=== PATIENT | male | born 1950 | race Caucasian/White ===

== ENCOUNTER 2018-02-20 05:54 | Inpatient (IN) ==
[2018-02-20] MEDS ORDERED: CeFAZolin Syr 2,000MG/20 ML 2,000 MG/20 ML SYRINGE IVPB ONE (06:37)
[2018-02-20] MEDS ORDERED: Famotidine 20 MG/2 ML VIAL IVP ONE (06:41)
[2018-02-20] MEDS ORDERED: Pregabalin 75 MG CAPSULE PO ONE (06:42)
[2018-02-20] MEDS ORDERED: Acetaminophen IV 1,000 MG/100 ML INFUS..BTL IVPB ONE (06:42)
[2018-02-20] MEDS ORDERED: Ringers Solution, Lactated 1,000 ML IVC SCH ×2 (06:45→11:43)
--- NOTE | 2018-02-20 06:54 | History & Physical Report ---
Date of Encounter: 02/20/18 Time of Encounter: 06:54 24 Hour HP Update - Instructions Instructions: If the History and Physical is less than 30 days old and was completed prior to A.M. admission and or procedure and has NOT been updated on calendar day of procedure please complete this update prior to performing procedure. - Update Patient reports changes in Medical Condition: No Changes in examination, assessment, or condition: No Changes in Medication: No Preop tests/diagnostics Reviewed: Yes Surgery Remains Indicated: Yes Consent for Planned Operative Procedure(s) Verified: Yes - Pre-Operative Checklist Preoperative Checklist Indicated: No Prophylactic Antibiotic Ordered: Yes Is VTE Prophylaxis Indicated?: Yes
[2018-02-20] MEDS ORDERED: ROPIVACAINE HCL/PF 0.5% 30 ML VIAL ONE (07:30)
[2018-02-20] MEDS ORDERED: Bupivacaine/Clonidine Syringe 1 EACH SYRINGE ONE (07:31)
[2018-02-20] MEDS ORDERED: *HR* Midazolam HCl 2 MG/2 ML VIAL ONE (07:52)
[2018-02-20] MEDS ORDERED: *HR* FentaNYL (PF) 100 MCG/2 ML VIAL ONE (07:52)
[2018-02-20] MEDS ORDERED: *HR* Propofol 200 MG/20 ML VIAL IVP ONE (07:52)
--- NOTE | 2018-02-20 07:52 | Anesthesia Evaluation PreOp ---
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 History: Other (Dementia) Other Medical History: Denies Any Significant HX, Thyroid, GERD Anesthesia History: No Prior Anesthetic Complications Alcohol Use: none Drug use: none Medications and Allergies ALPRAZolam [Xanax 1 MG Tablet] 1 mg PO TID PRN 02/20/18 [History] Bupropion HCl [Wellbutrin Xl] 300 mg PO DAILY 02/20/18 [History] Cholecalciferol (D-3) [Vitamin D] 1,000 unit PO DAILY 02/20/18 [History] Citalopram Hydrobromide [Celexa] 40 mg PO DAILY 02/20/18 [History] Dicyclomine [Bentyl] 20 mg PO QID PRN 02/20/18 [History] DiphenhydraMINE [Benadryl] 25 mg PO Q6HR 02/20/18 [History] HYDROcodone/Acet 7.5/325 mg [[place] 7.5-325 mg] 1 tab PO Q4H PRN 02/20/18 [ History] Ibuprofen [Motrin] 600 mg PO BID PRN 02/20/18 [History] Levothyroxine Sodium [Levo-T] 100 mcg PO DAILY 02/20/18 [History] Lisinopril [Zestril] 10 mg PO DAILY 02/20/18 [History] Trazodone HCl 100 mg PO DAILY 02/20/18 [History] raNITIdine HCl [Ranitidine HCl] 300 mg PO DAILY PRN 02/20/18 [History] 3 Allergy/AdvReac Type Severity Reaction Status Date / Time No Known Allergies Allergy Verified 02/20/18 07:09 - Meds/Allergy Pre-op Review Medications Reviewed: Yes Allergies Reviewed: Yes Beta Blockers on Current Med List: No Anesthesia Results - Labs Laboratory Tests 02/18/18 02/18/18 11:45 11:45 Hgb 15.2 Hct 44.9 Plt Count 191 Sodium 132 L Potassium 4.0 BUN 11 Creatinine 1.52 H - Imaging EKG: report reviewed (SR) Anesthesia Exam O2 Sat Height 1.68 m Height 1.68 m Height 1.68 m Weight 83.461 kg Weight 83.461 kg Weight 83.461 kg O2 Sat by Pulse Oximetry 95 Vital Signs Temp Pulse Resp BP Pulse Ox 98.3 F 82 18 133/80 95 02/20/18 06:18 02/20/18 06:18 02/20/18 06:18 02/20/18 06:18 02/20/18 06:18 Height: 5'6 Weight: 184 NPO (# of Hours): MN Pain Scale: 0 - HEENT Pupil (Motor): Pupils equal, EOMI Mallampati: III Teeth: Normal Oral Opening: Greater than 3 - CUSTOM GARMENT DESIGNER LOC: Oriented CUSTOM GARMENT DESIGNER Motor: Normal RUE, Normal LUE, Normal RLE, Normal LLE, Normal Face CUSTOM GARMENT DESIGNER Sensory: Normal: RUE, LUE, RLE, LLE, Face - Cardiac Rhythm: Regular Murmur: None JVD: No Carotid Bruit: No - Pulmonary Breath Sounds: bilateral Clear Respiratory Effort: Symmetrical Anesthesia Assess/Plan ASA Score: 3 (HTN DEmentia) Modified Mcrae [place] Scale for Level of Consciousness: Drowsy, but responsive to commands Monitoring Plan: Standard Monitors Recovery Plan: PACU (Discussed GA and RA, agrees to proceed)
--- NOTE | 2018-02-20 08:11 | Anesthesia Procedures ---
Date of Encounter: 02/20/18 Time of Encounter: 07:50 Procedures: Anesthesia - Nerve Block Procedure Date: 02/20/18 Time: 08:10 Pre-op Diagnosis: Arthropathy Rt Shoulder Surgical Procedure: Rt TSR Checklist: Correct Patient Identifier Correct side: Right Blood Thinner: No Monitor Applied: EKG, BP, Pulse Oximetry Sedation: Fentanyl (mcg): 100 Indication: Post Op Analgesia Pre-op Neuro Deficits: No Block Type: Supraclavicular Catheter placed: No Depth at skin (cm): 3 Sterile Technique: Yes Ultrasound used: Yes Anatomy identified: Yes Visual spread of Local: Yes Neuro Stimulation: No Blood on Needle Aspiration: No Smooth Injection of Local: Yes Pain with Injection of Local: No Prep: Chlorhexadine Needle: 22 x 50 mm Stimuplex Local: Ropivacaine, Other (Dexamethasone) Volume (cc): 30 Number of Attempts: 1 Complications: None/effective block Vitals: Vital Signs/O2 Sat/Glucose, Most Current Temp Pulse Resp BP Pulse Ox 02/20/18 06:18 98.3 F 82 18 133/80 95
--- NOTE | 2018-02-20 08:14 | Discharge Summary ---
<Mariusz Mcgill - Last Filed: 02/20/18 08:56> Orders not resulted at time of discharge: Pending orders 02/20/18 06:42 US anesthesia pain block [US] Routine 02/20/18 08:07 XR shoulder complete RT [XR] Routine H/H [Hemoglobin and Hematocrit] [HEME] Routine Date of Encounter: 02/20/18 - Discharge Diagnosis (1) Rotator cuff arthropathy of right shoulder Priority: Primary Status: Chronic (2) Status post reverse arthroplasty of right shoulder Priority: Primary Status: Acute (3) Alcoholic dementia Priority: Secondary Status: Chronic Qualifiers: Dementia behavioral disturbance: without behavioral disturbance Qualified Code(s): F10.27 - Alcohol dependence with alcohol-induced persisting dementia (4) Chronic pain Priority: Secondary Status: Chronic Qualifiers: Chronic pain type: chronic pain syndrome Qualified Code(s): G89.4 - Chronic pain syndrome (5) Decreased GFR Priority: Secondary Status: Chronic (6) HTN (hypertension) Priority: Secondary Status: Chronic Qualifiers: Hypertension type: essential hypertension Qualified Code(s): I10 - Essential (primary) hypertension (7) Hx of falling Priority: Secondary Status: Chronic - Hospital Course Hospital course: Mr. Kang is a 67 year old male - Time Spent with Patient Total time spent providing and/or coordinating discharge services: - Discharge Medications Home Medications: ALPRAZolam [Xanax 1 MG Tablet] 1 mg PO TID PRN 02/20/18 [History] Bupropion HCl [Wellbutrin Xl] 300 mg PO DAILY 02/20/18 [History] Cholecalciferol (D-3) [Vitamin D] 1,000 unit PO DAILY 02/20/18 [History] Citalopram Hydrobromide [Celexa] 40 mg PO DAILY 02/20/18 [History] Dicyclomine [Bentyl] 20 mg PO QID PRN 02/20/18 [History] DiphenhydraMINE [Benadryl] 25 mg PO Q6HR 02/20/18 [History] HYDROcodone/Acet 7.5/325 mg [[place] 7.5-325 mg] 1 tab PO Q4H PRN 02/20/18 [ History] Ibuprofen [Motrin] 600 mg PO BID PRN 02/20/18 [History] Levothyroxine Sodium [Levo-T] 100 mcg PO DAILY 02/20/18 [History] Lisinopril [Zestril] 10 mg PO DAILY 02/20/18 [History] Trazodone HCl 100 mg PO DAILY 02/20/18 [History] raNITIdine HCl [Ranitidine HCl] 300 mg PO DAILY PRN 02/20/18 [History] Allergies/Adverse Reactions: 3 Allergy/AdvReac Type Severity Reaction Status Date / Time No Known Allergies Allergy Verified 02/20/18 07:09 Primary care physician: Julien Mallory Jr, MD - Patient Status Disposition: Home, Self-Care Condition: Good - Discharge Instructions Follow Up With: Julien Mallory Jr, MD [Primary Care Provider] - <Agnieszka Staton - Last Filed: 02/20/18 15:51> Orders not resulted at time of discharge: Pending orders 02/20/18 06:42 US anesthesia pain block [US] Routine Date of Encounter: 02/20/18 Time of Encounter: 15:45 - Discharge Diagnosis (1) Rotator cuff arthropathy of right shoulder Priority: Primary Status: Chronic (2) Status post reverse arthroplasty of right shoulder Priority: Primary Status: Acute (3) Chronic pain Priority: Secondary Status: Chronic Comments: Continue chronic pain medication, reviewed with patient. Patient in agreement. Qualifiers: Chronic pain type: chronic pain syndrome Qualified Code(s): G89.4 - Chronic pain syndrome (4) Alcoholic dementia Priority: Secondary Status: Chronic Qualifiers: Dementia behavioral disturbance: without behavioral disturbance Qualified Code(s): F10.27 - Alcohol dependence with alcohol-induced persisting dementia (5) HTN (hypertension) Priority: Secondary Status: Chronic Qualifiers: Hypertension type: essential hypertension Qualified Code(s): I10 - Essential (primary) hypertension (6) Hx of falling Priority: Secondary Status: Chronic (7) Decreased GFR Priority: Secondary Status: Chronic Comments: BMP repeated today - mild improvement with kidney function. Continue to encourage hydration. - Hospital Course Hospital course: Mr. Kang is a 67 year old male, s/p Right TSR-reverse today with a history of Chronic pain, [id number] dementia, htN, and decreased GFR. He is an increased fall risk. Patient had uneventful postoperative course. Stable for discharge. Patient seen at bedside, without complaints. A&O x 3 Afebrile, vital signs stable. Labs reviewed. H/H - stable, asymptomatic Repeat BMP - improvement from baseline GFR: 46 and cre 1.52. Pain control: adequate Participating in PT. All questions and concerns addressed. Educated on use of incentive spirometer. Encouraged ambulation and proper hydration. Patient educated on post-operative restrictions and post-operative care. Assessment and plan: Continue with postoperative care Discharge plan: Home today with outpatient, family in agreement. discharge today. Dc shoulder pillow today Educated on shoulder ROM exercises. - Time Spent with Patient Total time spent providing and/or coordinating discharge services: Date of admission: 02/20 Primary care physician: Julien Mallory Jr, MD Anticipated date of discharge: 02/20/18 - Patient Status Functional capacity at discharge: independent ambulation Overall status at discharge: patient is back to baseline
[2018-02-20] MEDS ORDERED: Ondansetron 4 MG/2 ML VIAL ONE (08:32)
[2018-02-20] MEDS ORDERED: Dexamethasone 4 MG/ML VIAL ONE (08:32)
[2018-02-20] MEDS ORDERED: Ketorolac 30 MG/ML VIAL ONE (08:33)
[2018-02-20] MEDS ORDERED: *HR* Labetalol 20 MG/4 ML SYRINGE IVP PRN (08:49)
[2018-02-20] MEDS ORDERED: Ondansetron 4 MG/2 ML VIAL IVP PRN ×2 (08:49→11:43)
--- NOTE | 2018-02-20 08:56 | Orthopedic Operative Note ---
Date of procedure: 02/20/18 Pre-op diagnosis: Right shoulder cuff tear arthropathy Post-op diagnosis: same Procedure: Procedure: Total Shoulder Replacment Reverse, right Estimated blood loss: 50 cc Hardware: Metal and polyethylene replacement: Arthrex large glenoid baseplate, 2 4.5 screws. 1 6.5 screw, 42+4 glenosphere, 9 humeral stem, poly insert 3 Exam Under anesthesia: Full motion no instability Procedural Notes: Irreparable tear supraspinatus tendon Operative procedure: The patient was brought to the operating room and placed on the operating room table. After general anesthesia was administered the operative shoulder was examined. Findings were noted. The patient was placed in the modified beachchair position. All pressure points were padded appropriately. And the head was stabilized in the neutral position. The operative extremity was prepped and draped in the sterile surgical fashion. The patient received IV antibiotics prior to skin incision. A standard deltopectoral approach was made to the operative shoulder. Incision was made to the skin and subcutaneous tissue,hemo stasis was obtained with Bovie cautery. Using careful blunt dissection the cephalic vein was identified and mobilized medially. The deltopectoral interval was developed and the clavipectoral fascia was incised. The subscap was released off the lesser tuberosity and tagged with #2 FiberWire suture subscap was irreparable. The humerus was dislocated patient noted to have irreparable tear supraspinatus tendon, and the humeral cut was made along the anatomic neck. Anterior and posterior Bankart retractors were placed to expose the glenoid. The glenoid guide was seated and the centering hole was made. It was reamed with the appropriate reamer. The large baseplate was seated and secured with (2) 4.5 screws and one 6.5 screw. The baseplate was irrigated and dried and the 42+4 Glenosphere was seated and secured with the Thompson taper. The Thompson taper was tested and found to be secure the humerus was redislocated and prepared with the diaphyseal reamers, followed by a broaching process up to the appropriate size 9 in the patient's anatomic version. The metaphyseal reamer was then utilized. Trial reduction found the shoulder to be relocatable. Trial components were removed and the appropriate 9 stem was impacted in place in the patient's anatomic version. Trial reduction found the shoulder to be relocatable and stable with the appropriate 3 [place] Trial component was removed and the real implant was seated and secured the shoulder was reduced. The shoulder had excellent motion and excellent stability and no evidence of dislocation. The deep tissue was irrigated with pulse irrigation. The PA close the shoulder. The deltopectoral interval was closed with a running #1 PDS suture, subcutaneous tissue was irrigated and closed with 0 PDS suture, the skin was closed with Dermabond. The patient was placed in a sterile dressing, abduction brace and extubated. The patient was then transferred to the recovery room in stable condition. Anesthesia: [place] Surgeon: Mariusz Mcgill Was there an marketing operations assistant present: Yes Aquaculture Farmer: Agineszka Staton Estimated blood loss (cc): 50 Condition: stable Disposition: PACU
[2018-02-20] MEDS ORDERED: *HR* PHENYLEPHRINE 1,000 MCG/10 ML SYRINGE IVP ONE (09:00)
--- NOTE | 2018-02-20 09:44 | Anesthesia Evaluation Post Op ---
Date of Encounter: 02/20/18 Time of Encounter: 09:45 - Vital Signs Vital Signs: Vital Signs/O2 Sat/Glucose, Most Current Temp Pulse Resp BP Pulse Ox 02/20/18 09:30 82 16 120/73 100 02/20/18 09:20 75 16 116/78 100 02/20/18 09:10 98.8 F 82 16 102/53 96 02/20/18 08:07 77 16 130/70 98 02/20/18 06:18 98.3 F 82 18 133/80 95 - Lungs Lungs: Clear Ascult./Percussion - Airway Airway: Non-obstructed - Cardiovascular Regular Rate - Mental Status Mental Status: Alert & Oriented, Answers Appropriately - Pain Pain Scale: 0 - Nausea Vomiting Nausea Vomiting: Not Present - Hydration Hydration: Ice chips - Discharge PostOp Status: Transfer Patient to floor
[2018-02-20 10:03] LABS: Hematocrit 38.2 % (37.5-50.1)
[2018-02-20 10:04] LABS: Hemoglobin 12.7 g/dL (12.9-16.9)
[2018-02-20 10:16] LABS: BUN/Creatinine Ratio 10 (6-26); Blood Urea Nitrogen 14 mg/dL (8-23); Calcium 8.9 mg/dL (8.6-10.3); Carbon Dioxide 27 mEq/L (23-29); Chloride 105 mEq/L (98-107); Glucose 96 mg/dL (70-105); Osmolality,Calculated 284 (280-300); Potassium 3.8 mEq/L (3.5-5.1); Sodium 137 mEq/L (136-145); eGFR For Non-African Americans 52 (> 60)
[2018-02-20] MEDS ORDERED: Cholecalciferol (D-3) 1,000 UNIT TABLET PO SCH (11:43)
[2018-02-20] MEDS ORDERED: Temazepam 15 MG CAPSULE PO PRN (11:43)
[2018-02-20] MEDS ORDERED: traZODone 50 MG TABLET PO SCH (11:43)
[2018-02-20] MEDS ORDERED: MOM Conc 10 ML UD.LIQ PO PRN (11:43)
[2018-02-20] MEDS ORDERED: ALPRAZolam 1 MG TABLET PO PRN (11:43)
[2018-02-20] MEDS ORDERED: BuPROPion XL (24 HR) 150 MG TABLET PO SCH (11:43)
[2018-02-20] MEDS ORDERED: Sennosides 8.6 MG TABLET PO PRN (11:43)
[2018-02-20] MEDS ORDERED: *HR* OxyCODONE Immed Rel 5 MG TABLET PO PRN (11:43)
[2018-02-20] MEDS ORDERED: Famotidine 20 MG TABLET PO PRN (11:43)
[2018-02-20] MEDS ORDERED: Ibuprofen 600 MG TABLET PO SCH (11:43)
[2018-02-20] MEDS ORDERED: *HR* OxyCODONE/APAP 5/325 TABLET PO PRN (11:43)
[2018-02-20] MEDS ORDERED: Naloxone 0.4 MG/ML INJ IVP PRN (11:43)
[2018-02-20] MEDS ORDERED: traMADol 50 MG TABLET PO PRN (11:43)
--- NOTE | 2018-02-20 15:17 | Event Note ---
Date of Encounter: 02/20/18 Time of Encounter: 15:44 Assessment and plan: Continue with postoperative care Discharge plan: Home , discharge today. Vital Signs Temp Pulse Resp BP Pulse Ox 02/20/18 15:08 97.9 F 65 146/80 95 02/20/18 13:08 97.5 F L 59 136/83 96 02/20/18 12:00 97.4 F L 66 118/80 96 02/20/18 10:40 97.3 F L 65 12 113/73 97 02/20/18 10:04 97.6 F 72 12 122/70 94 02/20/18 09:40 97.8 F 76 16 120/73 98 02/20/18 09:30 82 16 120/73 100 02/20/18 09:20 75 16 116/78 100 02/20/18 09:10 98.8 F 82 16 102/53 96 02/20/18 08:07 77 16 130/70 98 02/20/18 06:18 98.3 F 82 18 133/80 95 Intake and Output 02/19/18 02/20/18 02/20/18 23:59 07:59 15:59 Output Total 50 / 50 Balance -50 / -50 Output: Estimated Blood Loss 50 / 50 Other: Weight 83.461 kg Patient Weight 02/20/18 23:59 Weight 83.461 kg Short CBC 02/20/18 Range/Units 09:34 Hgb 12.7 L D (12.9-16.9) g/dL Hct 38.2 (37.5-50.1) % BMP 02/20/18 Range/Units 09:34 Sodium 137 (136-145) mEq/L Potassium 3.8 (3.5-5.1) mEq/L Chloride 105 (98-107) mEq/L Carbon Dioxide 27 (23-29) mEq/L BUN 14 (8-23) mg/dL Creatinine 1.37 H (0.70-1.30) mg/dL Glucose 96 (70-105) mg/dL Calcium 8.9 (8.6-10.3) mg/dL Intake & Output 02/17/18 02/18/18 02/19/18 02/20/18 23:59 23:59 23:59 23:59 Output Total 50 / 50 Balance -50 / -50 Weight 83.461 kg
[2018-02-20 17:49] VITALS: BP 152/90
[2018-02-20] MEDS ORDERED: *HR* Enoxaparin 30 MG/0.3 ML SYRINGE SQ SCH ×2 (18:00)
== END 2018-02-20 18:37 | disposition home or self-care (01) | DRG 483 ==
LOC: SAMDAY 05:54 → INTOOBSV 10:33 → 3NENU 10:33
PROVIDERS: ADMIT Orthopaedic Surgery; ATTEND Orthopaedic Surgery